=== PATIENT | male | born 1945 | race Caucasian/White ===

== ENCOUNTER 2019-09-11 17:31 | Emergency (ER) | payer MEDICARE | END 2019-09-11 18:01 | disposition home or self-care (01) | LOC: EDH 17:31 | DX: Z76.0 Encounter for issue of repeat prescription (principal); I10 Essential (primary) hypertension; I50.9 Heart failure, unspecified; Z90.49 Acquired absence of other specified parts of digestive tract; Z87.891 Personal history of nicotine dependence; Z88.1 Allergy status to other antibiotic agents | CPT/HCPCS: 99281 ==